=== PATIENT | female | born 1975 | race Caucasian/White ===

== ENCOUNTER 2020-04-23 16:48 | Observation (INO) ==
[2020-04-23] MEDS ORDERED: ASPIRIN CHEW 324 MG PO STA (17:01)
--- NOTE | 2020-04-23 17:13 | Emergency Department Note ---
Impression & Plan Chest pain, Abnormal EKG ED Provider Note NAME: YUMIKO MARTINEZ AGE: 44 SEX: F : 1975 ARRIVES VIA: Walk-In INFORMANT: Patient, ED PROVIDER(S): Jack Holloway DO CHIEF COMPLAINT: Chest pain HPI: The patient is a 44-year-old female who presented to the emergency department from [facility] for an evaluation of chest pain. The patient states that she has been having chest pain for approximately 3 weeks. The patient s tates that she notices the pain over her left upper chest. She denies having any nausea or vomiting. She has no cough. She states the pain is somewhat associated with shortness of breath but she does not seem to feel that this is the worst part of the discomfort. The patient states that she notices at rest as well as when she exerts herself. She has noticed that her heart is racing at times. She says the pain is into her left upper extremity and sometimes worsened with lifting her left arm. The patient is noticed no abdominal pain. She notices no back pain. She has no previous history of coronary artery disease. The patient was seen and sent to the emergency department because of a n abnormal EKG and was felt to be in need of a work-up for venous thromboembolic disease. The patient denies having any calf tenderness or leg pain. ROS: See above HPI for pertinent positives & negatives. A total of 10 systems reviewed and were otherwise negative. PAST MEDICAL HISTORY: See Below PAST SURGICAL HISTORY: See Below FAMILY HISTORY: See Below SOCIAL HISTORY: See Below HOME MEDICATIONS: See Below ALLERGIES: See Below VITALS: See Below PHYSICAL EXAMINATION: GENERAL: The patient is awake and alert. She is somewhat anxious appearing. EYES: The conjunctivae are clear. The pupils are round and reactive. EARS, NOSE, MOUTH AND THROAT: The nose is without any evidence of any deformity. Mucous membranes are moist. Tongue is midline. NECK: The neck is nontender and supple. RESPIRATORY: Normal respiratory effort is noted there is no evidence of wheezing rhonchi or rales CARDIOVASCULAR: Tachycardic rate with regular rhythm was noted. There is no definite murmur. GASTROINTESTINAL: The abdomen is soft. Abdomen is nontender. MUSCULOSKELETAL/EXTREMITIES: There is no evidence of gross deformity full range of motion is noted in the hips and shoulders. SKIN: There is no obvious evidence of any rash. There are no petechiae, pallor or cyanosis noted. NEUROLOGIC: Patient is awake alert and oriented x 3. MEDICAL DECISION MAKING: The patient is a 44-year-old female who presented to the emergency department for an evaluation of chest pain. The patient was having ongoing symptoms for approximately 3 weeks. She went to see her primary care physician today. She was experiencing tachycardia as well as elevated blood pressure. She was found to have signs of ST segment abnormality in inferior and lateral leads which were felt to be consistent with ischemia or possibly pulmonary embolism. She presented to the emergency department at the request of the primary care physician who saw her today. EKG was unchanged from earlier today. Troponin was negative. D-dimer was elevated. This prompted CT of the chest but was not positive for pulmonary embolism. I discussed the patient's laboratory and radiographic studies with her. She was treated with aspirin in the emergency department. Given her abnormal EKG I did discuss her case with the on-call [facility] hospitalist. They have agreed to evaluate the patient in the emergency department for further management and disposition. Triage Nursing notes reviewed. Prior medical records reviewed Vital Signs: reviewed and remarkable for tachycardia and elevated blood pressure. Differential diagnosis: Cardiac ischemia, aortic dissection, pulmonary embolism, pneumothorax, pneumonia, pericarditis, myocarditis, esophageal rupture, GERD, cholecystitis, pancreatitis, musculoskeletal, as well as other pathologies. ER treatment provided: See below Diagnostics interpreted by me: ECG: EKG was obtained in the emergency department. My interpretation is sinus tachycardia at 118 bpm. There was no ectopy. Lateral and inferior ST depres sions were noted. There is no previous tracing available for comparison. Cardiac Monitoring: An order was placed for continuous cardiac monitoring. The monitor shows a rate of 110 bpm with sinus tachycardia rhythm. Laboratory studies: As stated above and show below. Imaging studies: See below Consultation(s): I discussed this case with Dr. Morales who is on-call for the [facility] group. Past Med/Surg History Social History Smoking Status: Never smoker Hx Alcohol Use: Yes Alcohol type: wine Alcohol Intake Frequency: 2-4 x/Month Feels Safe at Home: Yes Allergies Allergies Allergy/AdvReac Type Severity Reaction Status Date / Time No Known Allergies Allergy Unverified 04/23/20 17:46 Home Meds Home Medications Medication Instructions Recorded Confirmed No Known Home Medications 04/23/20 04/23/20 Results & Data (ED) Vital Signs Vital Signs - 24 hr 04/23/20 16:51 04/23/20 17:01 04/23/20 17:06 Temperature 36.8 C Temperature Source Temporal Artery Scan Pulse Rate 122 H 125 H Pulse Rate [Bilateral Apical] Pulse Rate from SpO2 Sensor 126 H Respiratory Rate 20 13 Respiratory Effort / Characteristics Respiratory Depth Blood Pressure 172/109 H Blood Pressure [Left Arm] Blood Pressure Mean 130 Blood Pressure Mean [Left Arm] Pulse Oximetry 99 100 99 Oxygen Delivery Method Room Air Room Air Sepsis Recent Fever Within 48 Hours No Sepsis New/Unexplained Change in Mental Status N/A Sepsis Action Taken by Nursing No Action Required 04/23/20 17:10 04/23/20 17:20 04/23/20 17:30 Temperature Temperature Source Pulse Rate 123 H 116 H 115 H Pulse Rate [Bilateral Apical] Pulse Rate from SpO2 Sensor 126 H Respiratory Rate 21 13 19 Respiratory Effort / Characteristics Respiratory Depth Blood Pressure Blood Pressure [Left Arm] Blood Pressure Mean Blood Pressure Mean [Left Arm] Pulse Oximetry 97 Oxygen Delivery Method Sepsis Recent Fever Within 48 Hours Sepsis New/Unexplained Change in Mental Status Sepsis Action Taken by Nursing 04/23/20 17:31 04/23/20 17:40 04/23/20 17:50 Temperature Temperature Source Pulse Rate 121 H 116 H 114 H Pulse Rate [Bilateral Apical] Pulse Rate from SpO2 Sensor Respiratory Rate 25 H 17 17 Respiratory Effort / Characteristics Respiratory Depth Blood Pressure 128/95 Blood Pressure [Left Arm] Blood Pressure Mean 106 Blood Pressure Mean [Left Arm] Pulse Oximetry Oxygen Delivery Method Sepsis Recent Fever Within 48 Hours Sepsis New/Unexplained Change in Mental Status Sepsis Action Taken by Nursing 04/23/20 18:00 04/23/20 18:29 04/23/20 18:30 Temperature Temperature Source Pulse Rate 120 H 119 H 115 H Pulse Rate [Bilateral Apical] Pulse Rate from SpO2 Sensor 119 H 115 H Respiratory Rate 21 19 16 Respiratory Effort / Characteristics Respiratory Depth Blood Pressure Blood Pressure [Left Arm] Blood Pressure Mean Blood Pressure Mean [Left Arm] Pulse Oximetry 98 99 Oxygen Delivery Method Room Air Sepsis Recent Fever Within 48 Hours Sepsis New/Unexplained Change in Mental Status Sepsis Action Taken by Nursing 04/23/20 18:40 04/23/20 19:07 Temperature Temperature Source Pulse Rate 112 H Pulse Rate [Bilateral Apical] 108 H Pulse Rate from SpO2 Sensor 113 H Respiratory Rate 16 20 Respiratory Effort / Characteristics Non-Labored Respiratory Depth Normal Blood Pressure Blood Pressure [Left Arm] 153/106 H Blood Pressure Mean Blood Pressure Mean [Left Arm] 121 Pulse Oximetry 97 96 Oxygen Delivery Method Sepsis Recent Fever Within 48 Hours Sepsis New/Unexplained Change in Mental Status Sepsis Action Taken by Jail Medications Current Medication List: was personally reviewed by me Laboratory Data Attestation: I reviewed the patient's lab results. Result diagrams: 04/23/20 17:17 04/23/20 17:17 Lab Results 04/23/20 04/23/20 04/23/20 Range/Units 17:17 17:17 17:17 WBC 10.27 (4.8-10.8) K/uL RBC 4.30 (4.2-5.4) M/uL Hgb 13.8 (12.0-16.0) g/dL Hct 40.5 (37-47) % MCV 94.2 (80-100) fL MCH 32.1 (25-34) pg MCHC 34.1 (32-36) g/dL RDW Std Deviation 43.3 (36.4-46.3) fL RDW Coeff of Rachell 12.6 (11.5-14.5) % Plt Count 288 (130-400) K/uL MPV 10.4 (7.4-10.4) fL Immature Gran % (Auto) 0.2 % Neut % (Auto) 69.8 % Lymph % (Auto) 22.2 % [place] % (Auto) 7.0 % Eos % (Auto) 0.7 % Baso % (Auto) 0.1 % Neut # (Auto) 7.17 H (1.4-6.5) K/uL Lymph # (Auto) 2.28 (1.2-3.4) K/uL [place] # (Auto) 0.72 H (0.11-0.59) K/uL Eos # (Auto) 0.07 (0-0.5) K/uL Baso # (Auto) 0.01 (0-0.2) K/uL Immature Gran # (Auto) 0.02 (0.00-0.02) K/uL PT (9.0-12.0) Seconds INR (0.9-1.1) APTT (21.0-31.0) Seconds PTT Ratio D-Dimer (0-500) ug/L FEU Sodium 141 (136-145) mmol/L Potassium 3.8 (3.5-5.1) mmol/L Chloride 107 (98-107) mmol/L Carbon Dioxide 28 (21-32) mmol/L Anion Gap 6.0 (3-11) BUN 15 (7-18) mg/dl Creatinine 0.88 (0.6-1.2) mg/dl Est Cr Clr Drug Dosing 87.6 ml/min Est GFR ( Amer) 93.3 Est GFR (Non-Af Amer) 80.5 BUN/Creatinine Ratio 16.5 (10-20) Glucose 105 H (70-99) mg/dl Calcium 9.1 (8.5-10.1) mg/dl Magnesium 2.0 (1.8-2.4) mg/dl Total Bilirubin 0.4 (0.2-1) mg/dl AST 10 L (15-37) U/L ALT 19 (12-78) U/L Alkaline Phosphatase 79 (45-117) U/L Troponin I < 0.015 (0-0.045) ng/ml Total Protein 8.1 (6.4-8.2) gm/dl Albumin 4.1 (3.4-5.0) gm/dl Globulin 4.0 (2.5-4.0) gm/dl Albumin/Globulin Ratio 1.0 (0.9-2) Lipase 147 (73-393) U/L TSH 0.632 (0.300-4.500) uIu/ml HCG, Qual Negative (Negative) COVID-19 Eval Order SARS-CoV-2, RNA, NAAT (NEGATIVE) 04/23/20 04/23/20 04/23/20 Range/Units 17:17 17:24 17:24 WBC (4.8-10.8) K/uL RBC (4.2-5.4) M/uL Hgb (12.0-16.0) g/dL Hct (37-47) % MCV (80-100) fL MCH (25-34) pg MCHC (32-36) g/dL RDW Std Deviation (36.4-46.3) fL RDW Coeff of Rachell (11.5-14.5) % Plt Count (130-400) K/uL MPV (7.4-10.4) fL Immature Gran % (Auto) % Neut % (Auto) % Lymph % (Auto) % [place] % (Auto) % Eos % (Auto) % Baso % (Auto) % Neut # (Auto) (1.4-6.5) K/uL Lymph # (Auto) (1.2-3.4) K/uL [place] # (Auto) (0.11-0.59) K/uL Eos # (Auto) (0-0.5) K/uL Baso # (Auto) (0-0.2) K/uL Immature Gran # (Auto) (0.00-0.02) K/uL PT 10.2 (9.0-12.0) Seconds INR 1.0 (0.9-1.1) APTT 25.0 (21.0-31.0) Seconds PTT Ratio 1.0 D-Dimer 720 H* (0-500) ug/L FEU Sodium (136-145) mmol/L Potassium (3.5-5.1) mmol/L Chloride (98-107) mmol/L Carbon Dioxide (21-32) mmol/L Anion Gap (3-11) BUN (7-18) mg/dl Creatinine (0.6-1.2) mg/dl Est Cr Clr Drug Dosing ml/min Est GFR ( Amer) Est GFR (Non-Af Amer) BUN/Creatinine Ratio (10-20) Glucose (70-99) mg/dl Calcium (8.5-10.1) mg/dl Magnesium (1.8-2.4) mg/dl Total Bilirubin (0.2-1) mg/dl AST (15-37) U/L ALT (12-78) U/L Alkaline Phosphatase (45-117) U/L Troponin I (0-0.045) ng/ml Total Protein (6.4-8.2) gm/dl Albumin (3.4-5.0) gm/dl Globulin (2.5-4.0) gm/dl Albumin/Globulin Ratio (0.9-2) Lipase (73-393) U/L TSH (0.300-4.500) uIu/ml HCG, Qual (Negative) COVID-19 Eval Order Covid19 IDNow [facility] SARS-CoV-2, RNA, NAAT NEGATIVE (NEGATIVE) Administered Medications Discontinued Medications Aspirin (Aspirin Chew 324 Mg) 324 mg PO NOW STA Stop: 04/23/20 17:02 Last Admin: 04/23/20 17:23 Dose: 324 mg Documented by: [id number] Sodium Chloride (Nss) 500 mls @ 999 mls/hr IV .Q31M GREG Stop: 04/23/20 17:45 Last Infusion: 04/23/20 18:03 Dose: 0 mls/hr Documented by: [id number] Admin: 04/23/20 17:23 Dose: 999 mls/hr Documented by: [id number] Ioversol (Ioversol 100ml) 117 ml IV ONCE ONE Stop: 04/23/20 18:16 Last Admin: 04/23/20 18:15 Dose: 117 ml Documented by: [id number] Imaging Data Radiologist's Impression: Patient: YUMIKO MARTINEZ Admit Date: 04/23/20 MR#: [id number] Address1: [address] [place] [address] Acct ID:[id number] Address2: Date: 1975 [facility] Zip: [place] [address] Age: 44 Location: ED Sex: F Room/Bed: Att Phy: Diagnosis: ABNORMAL EKG Yesica Phy: Maureen Cummings DO Service Date: 04/23/20 Fam Phy: Interpreting Phy: Alen Duque MD Admit Phy: Ordering Phy: Jack Holloway DO cc: ~ CT ANGIOGRAM OF THE CHEST CLINICAL HISTORY: Atypical chest pain. Left-sided chest pressure. COMPARISON STUDY: Chest x-ray dated 04/23/2020. TECHNIQUE: Following the IV administration of 117 cc of Optiray 320, CT angiogram of the chest was performed from the upper abdomen to the thoracic inlet utilizing the pulmonary embolus protocol. Images are reviewed in the axial, sagittal, and coronal planes. 3-D MIPS images are created and assessed. IV contrast was administered without complication. A dose lowering technique was utilized adhering to the principles of ALARA. CT DOSE: 353.68 mGy.cm FINDINGS: Thyroid: Imaged portions of the thyroid gland are normal in size and attenuation. Low-attenuation nodules measure up to 7 mm. Thoracic aorta: The thoracic aorta is normal in caliber and demonstrates standard 3-vessel arch anatomy. No dissection is seen. Pulmonary vasculature: The pulmonary trunk is normal in caliber. There are no filling defects identified in main, lobar, or segmental pulmonary branches to suggest pulmonary embolus. Heart: The heart is normal in size and without pericardial effusion. Lungs and pleural spaces: The lungs and pleural spaces are clear. The trachea and central airways are patent. Mediastinum: There is no mediastinal lymphadenopathy. [place]: Clear. Axillae: There is no axillary lymphadenopathy. Upper abdomen: Partially visualized upper abdominal viscera is within normal limits. Skeletal structures: No lytic or blastic bony lesions are seen. IMPRESSION: 1. There is no evidence of pulmonary embolus in the main, lobar, or segmental pulmonary arteries. 2. The lungs are clear. ACT 112: Negative or not required by law. Electronically signed by: Alen Duque M.D. 04/23/2020 6:38 PM Dictated: 04/23/201832 Transcribed: 04/23/201832 Patient: YUMIKO MARTINEZ Admit Date: 04/23/20 MR#: [id number] Address1: [address] [place] [address] Acct ID:[id number] Address2: Date: 1975 [facility] Zip: [place] [address] Age: 44 Location: ED Sex: F Room/Bed: Att Phy: Diagnosis: ABNORMAL EKG Yesica Phy: Maureen Cummings DO Service Date: 04/23/20 Fam Phy: Interpreting Phy: Alen Duque MD Admit Phy: Ordering Phy: Jack Holloway DO cc: ~ SINGLE VIEW CHEST CLINICAL HISTORY: Atypical chest pain. FINDINGS: An AP, portable, upright chest radiograph is obtained. No prior studies are available for comparison at the time of dictation. The cardiomediastinal silhouette is unremarkable. The lungs and pleural spaces are clear. No pneumothorax is seen. The bony thorax is grossly intact. IMPRESSION: No active disease in the chest. ACT 112: Negative or not required by law. Electronically signed by: Alen Duque M.D. 04/23/2020 5:47 PM Dictated: 04/23/201746 Transcribed: 04/23/207 Blood Pressure Blood Pressure Findings: Elevated blood pressure Blood Pressure Disposition: further management by hospitalist Discharge Plan Visit Data Chief Complaint: Abnormal Labs/Diagnostic Testing Stated Complaint: ABNORMAL EKG ED Provider: Jack Holloway Discharge Problem: Chest pain, Abnormal EKG Patient Disposition: Being Evaluated by Hospitalist Condition: Good Forms Stand Alone Forms: [employer] Prescriptions Prescriptions: No Action No Known Home Medications RF: 0 Referrals Referrals: Maureen Cummings DO [Primary Care Provider] - Discharge Problem: Chest pain Qualifiers: Chest pain type: unspecified Qualified Code(s): R07.9 - Chest pain, unspecified
[2020-04-23] MEDS ORDERED: SODIUM CHLORIDE 0.9% 500 ML IV SCH (17:15)
[2020-04-23 17:27] LABS: Basophils # (auto) 0.01 K/uL (0-0.2); Basophils % (auto) 0.1 %; Eosinophils # (auto) 0.07 K/uL (0-0.5); Eosinophils % (auto) 0.7 %; Hematocrit (blood only) 40.5 % (37-47); Hemoglobin 13.8 g/dL (12.0-16.0); Immature Granulocytes # (auto) 0.02 K/uL (0.00-0.02); Immature Granulocytes % (auto) 0.2 %; Lymphocytes # (auto) 2.28 K/uL (1.2-3.4); Lymphocytes % (auto) 22.2 %; Mean Corpuscular Hemoglobin 32.1 pg (25-34); Mean Corpuscular Hgb Conc 34.1 g/dL (32-36); Mean Corpuscular Volume 94.2 fL (80-100); Mean Platelet Volume 10.4 fL (7.4-10.4); Monocytes # (auto) 0.72 K/uL (0.11-0.59); Neutrophils # (auto) 7.17 K/uL (1.4-6.5); Neutrophils % (auto) 69.8 %; Platelet Count 288 K/uL (130-400); RDW Coefficient of Variation 12.6 % (11.5-14.5); RDW Standard Deviation 43.3 fL (36.4-46.3); White Blood Count 10.27 K/uL (4.8-10.8)
[2020-04-23 17:43] LABS: Alanine Aminotransferase 19 U/L (12-78); Albumin Level 4.1 gm/dl (3.4-5.0); Aspartate Aminotransferase 10 U/L (15-37); BUN Creatinine Ratio 16.5 (10-20); Blood Urea Nitrogen 15 mg/dl (7-18); Calcium 9.1 mg/dl (8.5-10.1); Carbon Dioxide 28 mmol/L (21-32); Chloride 107 mmol/L (98-107); Creatinine Clr Calc Pharmacy 87.6 ml/min; Est GFR (African American) 93.3; Est GFR (Non-African American) 80.5; Glucose 105 mg/dl (70-99); Lipase 147 U/L (73-393); Potassium 3.8 mmol/L (3.5-5.1); Sodium 141 mmol/L (136-145)
--- NOTE | 2020-04-23 17:49 | XRay Report ---
SINGLE VIEW CHEST CLINICAL HISTORY: Atypical chest pain. FINDINGS: An AP, portable, upright chest radiograph is obtained. No prior studies are available for c omparison at the time of dictation. The cardiomediastinal silhouette is unremarkable. The lungs and pleural spaces are clear. No pneumothorax is seen. The bony thorax is grossly intact. IMPRESSION: No active disease in the chest. ACT 112: Negative or not required by law. Electronically signed by: Alen Duque M.D. 04/23/2020 5:47 PM
[2020-04-23 17:54] LABS: Alkaline Phosphatase 79 U/L (45-117); Bilirubin,Total 0.4 mg/dl (0.2-1); D Dimer 720 ug/L FEU (0-500); Thyroid Stimulating Hormone 0.632 uIu/ml (0.300-4.500); Total Protein 8.1 gm/dl (6.4-8.2); Troponin I < 0.015 ng/ml (0-0.045)
[2020-04-23 17:55] LABS: Pregnancy Test, Serum Negative (Negative)
[2020-04-23 18:05] LABS: Prothrombin Time 10.2 Seconds (9.0-12.0)
[2020-04-23] MEDS ORDERED: IOVERSOL 100ml IV ONE (18:15)
--- NOTE | 2020-04-23 18:39 | CT Scan Report ---
CT ANGIOGRAM OF THE CHEST CLINICAL HISTORY: Atypical chest pain. Left-sided chest pressure. COMPARISON STUDY: Chest x-ray dated 04/23/2020. TECHNIQUE: Following the IV administration of 117 cc of Optiray 320, CT angiogram of the chest was pe rformed from the upper abdomen to the thoracic inlet utilizing the pulmonary embolus protocol. Images are reviewed in the axial, sagittal, and coronal planes. 3-D MIPS images are created and assessed. I V contrast was administered without complication. A dose lowering technique was utilized adhering to the principles of ALARA. CT DOSE: 353.68 mGy.cm FINDINGS: Thyroid: Imaged portions of the thyroid gland are normal in size and attenuation. Low-attenuation nod ules measure up to 7 mm. Thoracic aorta: The thoracic aorta is normal in caliber and demonstrates standard 3-vessel arch anato my. No dissection is seen. Pulmonary vasculature: The pulmonary trunk is normal in caliber. There are no filling defects identif ied in main, lobar, or segmental pulmonary branches to suggest pulmonary embolus. Heart: The heart is normal in size and without pericardial effusion. Lungs and pleural spaces: The lungs and pleural spaces are clear. The trachea and central airways are patent. Mediastinum: There is no mediastinal lymphadenopathy. Mar[place]: Clear. Axillae: There is no axillary lymphadenopathy. Upper abdomen: Partially visualized upper abdominal viscera is within normal limits. Skeletal structures: No lytic or blastic bony lesions are seen. IMPRESSION: 1. There is no evidence of pulmonary embolus in the main, lobar, or segmental pulmonary arteries. 2. The lungs are clear. ACT 112: Negative or not required by law. Electronically signed by: Alen Duque M.D. 04/23/2020 6:38 PM
[2020-04-23] MEDS ORDERED: POTASSIUM CHLORIDE CRTAB 20 MEQ TABCR PO STA (19:40)
[2020-04-23 20:36] LABS: C Reactive Protein 0.43 mg/dl (0-0.29); Troponin I < 0.015 ng/ml (0-0.045)
[2020-04-23] MEDS ORDERED: NITROGLYCERIN SL 0.4 MG/TAB TAB SL STA (20:47)
--- NOTE | 2020-04-23 20:50 | History & Physical Report ---
Date of Service April 23, 2020 Assessment & Plan (1) Chest pain: Atypical No relief with nitroglycerin. Anxiety contributory OBS PCU Analgesia Anxiolytic as needed Follow troponin TTE, Cardiology consult RE chest pain DVT prophylaxis. Lovenox subcu Full code Text document was generated using [employer] voice recognition software. It may contain grammatical or spelling errors. Kindly contact undersigned for clarification of any documentation item in question. History of Present Illness Chief Complaint: Chest pressure Primary Care Provider: Maureen Cummings DO History obtained from patient and records. Medical history significant for 3 weeks ago patient noted intermittent left sided chest pressure symptoms with episodic palpitations possibly related to exercise and left arm motion. No cough, no S OB symptoms. Usual stress at work. Patient seen at the weekend clinic today. SBP 140s, pulse rate 120s. EKG at the office showed tachycardia with inverted T waves in the anterolateral leads. Patient sent to the ER for evaluation. Aspirin given at the ER. Chest pressure not relieved by nitroglycerin administration at the ER. Medical History as above Surgical History : Dental surgery Family History : Stroke Personal/Social history : Non-smoker, occasional EtOH intake, company career placement services counselor Allergies Allergy/AdvReac Type Severity Reaction Status Date / Time No Known Allergies Allergy Unverified 04/23/20 17:46 Home Medications Medication Instructions Recorded Confirmed Type No Known Home Medications 04/23/20 04/23/20 History Past Med/Surg History Social History Smoking Status: Never smoker Second Hand Exposure: No; Do You Dip or Chew Tobacco: No; Tobacco Cessation Education Requested by Patient: No Hx Alcohol Use: Yes Alcohol type: wine Alcohol Intake Frequency: 2-4 x/Month Hx Substance Use: No Preferred Language: Khmer Communication Ability: Effective Fire Chief Required: No Beliefs That Will Affect Care: None Current Living Situation: Family Other Information That Helps Us Care for You: No Feels Safe at Home: Yes Safety Concerns: Feels Safe At This Time Assistive Devices: None Review of Systems Review of Systems: As per HPI, all 10 systems reviewed, all other ROS negative Physical Exam Physical Exam: GENERAL: Comfortable, anxious, no respiratory distress, occasionally hyperventilating SKIN: Normal color, warm HEENT: [place] palpebral conjunctivae, no ptosis, moist buccal mucosa NECK : Supple, no tenderness CHEST : CTA, no tenderness HEART : Tachycardic, no obvious murmurs ABDOMEN: Some distention, nontender EXTREMITIES : No LE swelling/tenderness, no other conspicuous deformities noted NEUROLOGIC : Coherent, no facial asymmetry, no other gross focality Results & Data Results & Data ([facility]) Vital Signs (Past 12 Hours) Vital Signs Temp Pulse Pulse Resp BP BP Pulse Ox 04/23/20 20:05 98 H 20 139/92 97 04/23/20 19:07 108 H 20 153/106 H 96 04/23/20 18:40 112 H 16 97 04/23/20 18:30 115 H 16 99 04/23/20 18:29 119 H 19 98 04/23/20 18:00 120 H 21 04/23/20 17:50 114 H 17 04/23/20 17:40 116 H 17 04/23/20 17:31 121 H 25 H 128/95 04/23/20 17:30 115 H 19 04/23/20 17:20 116 H 13 04/23/20 17:10 123 H 21 97 04/23/20 17:06 99 04/23/20 17:01 125 H 13 100 04/23/20 16:51 36.8 C 122 H 20 172/109 H 99 Laboratory Results Laboratory Results WBC 10.27 K/uL (4.8-10.8) 04/23/20 17:17 RBC 4.30 M/uL (4.2-5.4) 04/23/20 17:17 Hgb 13.8 g/dL (12.0-16.0) 04/23/20 17:17 Hct 40.5 % (37-47) 04/23/20 17:17 MCV 94.2 fL (80-100) 04/23/20 17:17 MCH 32.1 pg (25-34) 04/23/20 17:17 MCHC 34.1 g/dL (32-36) 04/23/20 17:17 RDW Std Deviation 43.3 fL (36.4-46.3) 04/23/20 17:17 RDW Coeff of Rachell 12.6 % (11.5-14.5) 04/23/20 17:17 Plt Count 288 K/uL (130-400) 04/23/20 17:17 MPV 10.4 fL (7.4-10.4) 04/23/20 17:17 Immature Gran % (Auto) 0.2 % 04/23/20 17:17 Neut % (Auto) 69.8 % 04/23/20 17:17 Lymph % (Auto) 22.2 % 04/23/20 17:17 [place] % (Auto) 7.0 % 04/23/20 17:17 Eos % (Auto) 0.7 % 04/23/20 17:17 Baso % (Auto) 0.1 % 04/23/20 17:17 Neut # (Auto) 7.17 K/uL (1.4-6.5) H 04/23/20 17:17 Lymph # (Auto) 2.28 K/uL (1.2-3.4) 04/23/20 17:17 [place] # (Auto) 0.72 K/uL (0.11-0.59) H 04/23/20 17:17 Eos # (Auto) 0.07 K/uL (0-0.5) 04/23/20 17:17 Baso # (Auto) 0.01 K/uL (0-0.2) 04/23/20 17:17 Immature Gran # (Auto) 0.02 K/uL (0.00-0.02) 04/23/20 17:17 ESR 9 mm/hr (0-21) 04/23/20 17:17 PT 10.2 Seconds (9.0-12.0) 04/23/20 17:17 INR 1.0 (0.9-1.1) 04/23/20 17:17 APTT 25.0 Seconds (21.0-31.0) 04/23/20 17:17 PTT Ratio 1.0 04/23/20 17:17 D-Dimer 720 ug/L FEU (0-500) H* 04/23/20 17:17 Sodium 141 mmol/L (136-145) 04/23/20 17:17 Potassium 3.8 mmol/L (3.5-5.1) 04/23/20 17:17 Chloride 107 mmol/L (98-107) 04/23/20 17:17 Carbon Dioxide 28 mmol/L (21-32) 04/23/20 17:17 Anion Gap 6.0 (3-11) 04/23/20 17:17 BUN 15 mg/dl (7-18) 04/23/20 17:17 Creatinine 0.88 mg/dl (0.6-1.2) 04/23/20 17:17 Est Cr Clr Drug Dosing 87.6 ml/min 04/23/20 17:17 Est GFR ( Amer) 93.3 04/23/20 17:17 Est GFR (Non-Af Amer) 80.5 04/23/20 17:17 BUN/Creatinine Ratio 16.5 (10-20) 04/23/20 17:17 Glucose 105 mg/dl (70-99) H 04/23/20 17:17 Calcium 9.1 mg/dl (8.5-10.1) 04/23/20 17:17 Magnesium 2.0 mg/dl (1.8-2.4) 04/23/20 17:17 Total Bilirubin 0.4 mg/dl (0.2-1) 04/23/20 17:17 AST 10 U/L (15-37) L 04/23/20 17:17 ALT 19 U/L (12-78) 04/23/20 17:17 Alkaline Phosphatase 79 U/L (45-117) 04/23/20 17:17 Troponin I < 0.015 ng/ml (0-0.045) 04/23/20 20:06 C-Reactive Protein 0.43 mg/dl (0-0.29) H 04/23/20 20:06 Total Protein 8.1 gm/dl (6.4-8.2) 04/23/20 17:17 Albumin 4.1 gm/dl (3.4-5.0) 04/23/20 17:17 Globulin 4.0 gm/dl (2.5-4.0) 04/23/20 17:17 Albumin/Globulin Ratio 1.0 (0.9-2) 04/23/20 17:17 Lipase 147 U/L (73-393) 04/23/20 17:17 TSH 0.632 uIu/ml (0.300-4.500) 04/23/20 17:17 HCG, Qual Negative (Negative) 04/23/20 17:17 COVID-19 Eval Order Covid19 [facility] 04/23/20 17:24 SARS-CoV-2, RNA, NAAT NEGATIVE (NEGATIVE) 04/23/20 17:[address] chest: 1. There is no evidence of pulmonary embolus in the main, lobar, or segmental pulmonary arteries. 2. The lungs are clear. EKG as per my interpretation : Rate 120, sinus tachycardia, normal axis, T wave abnormalities inferior leads, ST depression inferior and anterior leads (1) Chest pain Chest pain type: unspecified Qualified Code(s): R07.9 - Chest pain, unspecified
[2020-04-23] MEDS: NITROGLYCERIN SL 0.4 MG/TAB TAB SL PRN ×2 (20:54→20:55)
[2020-04-23 21:28] LABS: Lyme Ab IgG w/WB Rflx Negative (Negative); Lyme Ab IgM w/WB Rflx Negative (Negative)
[2020-04-23] MEDS ORDERED: LORazepam 0.25 MG/0.5 ML VIAL IV PRN (21:57)
[2020-04-23] MEDS ORDERED: PROMETHAZINE HCL 12.5 MG in SODIUM CHLORIDE 0.9% 50 ML IV PRN (21:57)
[2020-04-23] MEDS ORDERED: ACETAMINOPHEN 325 MG TAB PO PRN (21:57)
[2020-04-23] MEDS ORDERED: traMADol HCL 50 MG TABLET PO PRN (21:57)
[2020-04-23] MEDS ORDERED: MoRPHine SULFATE 2 MG/ML CARP IV PRN (21:57)
[2020-04-23] MEDS ORDERED: traMADol HCL 50 MG TABLET PO STA (22:00)
[2020-04-23] MEDS ORDERED: NSS + 20MEQ KCL 20 MEQ/1,000 ML BAG IV ONE (22:30)
[2020-04-24 06:16] LABS: Basophils # (auto) 0.01 K/uL (0-0.2); Basophils % (auto) 0.1 %; Eosinophils # (auto) 0.09 K/uL (0-0.5); Eosinophils % (auto) 1.2 %; Hematocrit (blood only) 37.1 % (37-47); Hemoglobin 12.5 g/dL (12.0-16.0); Immature Granulocytes # (auto) 0.02 K/uL (0.00-0.02); Immature Granulocytes % (auto) 0.3 %; Lymphocytes # (auto) 2.22 K/uL (1.2-3.4); Lymphocytes % (auto) 28.9 %; Mean Corpuscular Hemoglobin 31.6 pg (25-34); Mean Corpuscular Hgb Conc 33.7 g/dL (32-36); Mean Corpuscular Volume 93.9 fL (80-100); Mean Platelet Volume 10.4 fL (7.4-10.4); Monocytes # (auto) 0.53 K/uL (0.11-0.59); Monocytes % (auto) 6.9 %; Neutrophils # (auto) 4.81 K/uL (1.4-6.5); Neutrophils % (auto) 62.6 %; Platelet Count 224 K/uL (130-400); RDW Coefficient of Variation 12.7 % (11.5-14.5); RDW Standard Deviation 43.9 fL (36.4-46.3); Red Blood Count 3.95 M/uL (4.2-5.4); White Blood Count 7.68 K/uL (4.8-10.8)
[2020-04-24 06:49] LABS: BUN Creatinine Ratio 16.3 (10-20); Blood Urea Nitrogen 12 mg/dl (7-18); Carbon Dioxide 25 mmol/L (21-32); Chloride 111 mmol/L (98-107); Cholesterol 176 mg/dl (0-200); Creatinine Clr Calc Pharmacy 99.7 ml/min; Est GFR (African American) 111.4; Est GFR (Non-African American) 96.1; Glucose 94 mg/dl (70-99); Potassium 3.9 mmol/L (3.5-5.1); Sodium 143 mmol/L (136-145)
[2020-04-24 06:54] LABS: Chol HDL Ratio 3; HDL Cholesterol 64 mg/dl; LDL Cholesterol Calculated 88 mg/dl; Triglycerides 122 mg/dl (0-150); Troponin I < 0.015 ng/ml (0-0.045); VLDL Cholesterol 24 mg/dl
[2020-04-24] MEDS: ENOXAPARIN INJ 40 MG/0.4 ML SYR SQ SCH (08:44)
[2020-04-24] MEDS ORDERED: INFLUENZA VIRUS QUAD VACCINE 0.5 ML SYR IM ONE (09:00)
[2020-04-24] MEDS ORDERED: INFLUENZA ADMINISTRATION CHARGE ONE (09:00)
--- NOTE | 2020-04-24 13:06 | Cardiology Consultation ---
Date of Consultation April 24, 2020 Assessment & Plan (1) Chest pain: (2) Abnormal EKG: It was my pleasure to see Mrs. Bright in consultation today. Her chest discomfort is atypical for ischemia but given the abnormal EKG she did undergo exercise stress echocardiogram. Stress imaging was normal at 12.[address] segment depressions were worsened with exercise. No change in chest discomfort at peak exercise. Resting echocardiogram does show a small amount of increased pericardial fluid with possible increased brightness of the pericardium as well. Given the above symptoms and findings I am suspicious that she is suffering from pericarditis. Lyme titers have been sent. We will initiate treatment with ibuprofen 600 mg p.o. every 6 hours along with colchicine 0.6 mg twice daily. I would like to continue to watch her on telemetry overnight to monitor her symptoms and if there is no response to treatment further ischemic evaluation may be warranted. My hope is that her symptoms will improve with treatment and that a coronary CTA could be performed as an outpatient given the equivocal stress test findings. History of Present Illness Reason for Consultation: Chest pain Requesting Physician: Dr. Morales Attending Physician: Silverio Shafer MD History of Present Illness It was my pleasure to see Mrs. Bright in cardiac consultation today. She is a very pleasant and healthy 44-year-old woman who presented to [facility] at the advice of her PCP for evaluation of chest pain. She states that for the last 3 weeks she has had this ongoing nagging chest discomfort. She describes it as a pressure sensation across her left precordium. She states that the pain is relatively constant and is not changed with movement or deep palpation of the site. She denies any associated symptoms with the chest discomfort. A few days ago she did attempt to exercise on her elliptical machine and while the chest discomfort did not change in intensity she did notice radiation down to her left arm at that time with a rapid increase of her pulse. She was seen in the PCPs office for evaluation of this and EKG was performed which was significantly abnormal. No previous studies available for comparison and she was transferred to [facility] emergency department. Overnight, there is been no change of her chest discomfort and otherwise feels well. [place] ticks. She does not remember any tick bites of her own recently but she has pulled ticks off her pets and family members. She denies any arthralgias or fevers. Allergies Allergy/AdvReac Type Severity Reaction Status Date / Time No Known Allergies Allergy Unverified 04/23/20 17:46 Home Medications Medication Instructions Recorded Confirmed Type No Known Home Medications 04/23/20 04/23/20 History Patient History Social History Smoking Status: Never smoker Second Hand Exposure: No; Do You Dip or Chew Tobacco: No; Tobacco Cessation Education Requested by Patient: No Hx Alcohol Use: Yes Alcohol type: wine Alcohol Intake Frequency: 2-4 x/Month Hx Substance Use: No Preferred Language: [place] Communication Ability: Effective Campaign Coordinator Required: No Beliefs That Will Affect Care: None Current Living Situation: Family Other Information That Helps Us Care for You: No Feels Safe at Home: Yes Safety Concerns: Feels Safe At This Time Assistive Devices: None Review of Systems Review of Systems: All systems reviewed & are unremarkable except as noted in HPI & below Physical Exam Physical Exam: Physical Exam: General: Awake, alert and oriented x 3. No acute distress. HEENT: Normocephalic, atraumatic. Pupils equal, round and reactive to light and accommodation. Extraocular muscles are intact. Anicteric sclera. Moist mucous membranes. Neck: No JVD. No bruit. Cardiovascular: Regular. No S-4. Normal S-1 and S-2. No S-3. No murmurs, rubs or gallops. Pulmonary: Clear to auscultation bilaterally. No rales, rhonchi, or wheezing. Abdomen: Bowel sounds x 4, soft. No rebound, guarding or tenderness. No organomegaly. Extremities: No clubbing, cyanosis or edema. +2 pedal pulses bilaterally. Skin: Warm and dry. Results & Data ([facility]) Vital Signs (Past 12 Hours) Vital Signs Temp Pulse Pulse Resp BP Pulse Ox 04/24/20 11:12 36.6 C 99 H 18 137/88 98 04/24/20 07:12 36.7 C 106 H 18 139/97 98 04/24/20 07:00 89 04/24/20 04:01 36.6 C 95 H 18 122/80 95 Laboratory Results Laboratory Results - last 24 hr 04/23/20 04/23/20 04/23/20 17:17 17:17 17:17 WBC 10.27 RBC 4.30 Hgb 13.8 Hct 40.5 MCV 94.2 MCH 32.1 MCHC 34.1 RDW Std Deviation 43.3 RDW Coeff of Rachell 12.6 Plt Count 288 MPV 10.4 Immature Gran % (Auto) 0.2 Neut % (Auto) 69.8 Lymph % (Auto) 22.2 [place] % (Auto) 7.0 Eos % (Auto) 0.7 Baso % (Auto) 0.1 Neut # (Auto) 7.17 H Lymph # (Auto) 2.28 [place] # (Auto) 0.72 H Eos # (Auto) 0.07 Baso # (Auto) 0.01 Immature Gran # (Auto) 0.02 ESR PT INR APTT PTT Ratio D-Dimer Sodium 141 Potassium 3.8 Chloride 107 Carbon Dioxide 28 Anion Gap 6.0 BUN 15 Creatinine 0.88 Est Cr Clr Drug Dosing 87.6 Est GFR ( Amer) 93.3 Est GFR (Non-Af Amer) 80.5 BUN/Creatinine Ratio 16.5 Glucose 105 H Calcium 9.1 Magnesium 2.0 Total Bilirubin 0.4 AST 10 L ALT 19 Alkaline Phosphatase 79 Troponin I < 0.015 C-Reactive Protein Total Protein 8.1 Albumin 4.1 Globulin 4.0 Albumin/Globulin Ratio 1.0 Triglycerides Cholesterol LDL Cholesterol, Calc VLDL Cholesterol, Calc HDL Cholesterol Cholesterol/HDL Ratio Lipase 147 TSH 0.632 HCG, Qual Negative Lyme Disease IgG Ab Lyme Disease IgM Ab COVID-19 Eval Order SARS-CoV-2, RNA, NAAT 04/23/20 04/23/20 04/23/20 17:17 17:17 17:17 WBC RBC Hgb Hct MCV MCH MCHC RDW Std Deviation RDW Coeff of Rachell Plt Count MPV Immature Gran % (Auto) Neut % (Auto) Lymph % (Auto) [place] % (Auto) Eos % (Auto) Baso % (Auto) Neut # (Auto) Lymph # (Auto) [place] # (Auto) Eos # (Auto) Baso # (Auto) Immature Gran # (Auto) ESR 9 PT 10.2 INR 1.0 APTT 25.0 PTT Ratio 1.0 D-Dimer 720 H* Sodium Potassium Chloride Carbon Dioxide Anion Gap BUN Creatinine Est Cr Clr Drug Dosing Est GFR ( Amer) Est GFR (Non-Af Amer) BUN/Creatinine Ratio Glucose Calcium Magnesium Total Bilirubin AST ALT Alkaline Phosphatase Troponin I C-Reactive Protein Total Protein Albumin Globulin Albumin/Globulin Ratio Triglycerides Cholesterol LDL Cholesterol, Calc VLDL Cholesterol, Calc HDL Cholesterol Cholesterol/HDL Ratio Lipase TSH HCG, Qual Lyme Disease IgG Ab Negative Lyme Disease IgM Ab Negative COVID-19 Eval Order SARS-CoV-2, RNA, NAAT 04/23/20 04/23/20 04/23/20 17:24 17:24 20:06 WBC RBC Hgb Hct MCV MCH MCHC RDW Std Deviation RDW Coeff of Rachell Plt Count MPV Immature Gran % (Auto) Neut % (Auto) Lymph % (Auto) [place] % (Auto) Eos % (Auto) Baso % (Auto) Neut # (Auto) Lymph # (Auto) [place] # (Auto) Eos # (Auto) Baso # (Auto) Immature Gran # (Auto) ESR PT INR APTT PTT Ratio D-Dimer Sodium Potassium Chloride Carbon Dioxide Anion Gap BUN Creatinine Est Cr Clr Drug Dosing Est GFR ( Amer) Est GFR (Non-Af Amer) BUN/Creatinine Ratio Glucose Calcium Magnesium Total Bilirubin AST ALT Alkaline Phosphatase Troponin I < 0.015 C-Reactive Protein 0.43 H Total Protein Albumin Globulin Albumin/Globulin Ratio Triglycerides Cholesterol LDL Cholesterol, Calc VLDL Cholesterol, Calc HDL Cholesterol Cholesterol/HDL Ratio Lipase TSH HCG, Qual Lyme Disease IgG Ab Lyme Disease IgM Ab COVID-19 Eval Order Covid19 [facility] SARS-CoV-2, RNA, NAAT NEGATIVE 04/24/20 04/24/20 05:43 05:43 WBC 7.68 RBC 3.95 L Hgb 12.5 Hct 37.1 MCV 93.9 MCH 31.6 MCHC 33.7 RDW Std Deviation 43.9 RDW Coeff of Rachell 12.7 Plt Count 224 MPV 10.4 Immature Gran % (Auto) 0.3 Neut % (Auto) 62.6 Lymph % (Auto) 28.9 [place] % (Auto) 6.9 Eos % (Auto) 1.2 Baso % (Auto) 0.1 Neut # (Auto) 4.81 Lymph # (Auto) 2.22 [place] # (Auto) 0.53 Eos # (Auto) 0.09 Baso # (Auto) 0.01 Immature Gran # (Auto) 0.02 ESR PT INR APTT PTT Ratio D-Dimer Sodium 143 Potassium 3.9 Chloride 111 H Carbon Dioxide 25 Anion Gap 7.0 BUN 12 Creatinine 0.76 Est Cr Clr Drug Dosing 99.7 Est GFR ( Amer) 111.4 Est GFR (Non-Af Amer) 96.1 BUN/Creatinine Ratio 16.3 Glucose 94 Calcium 9.0 Magnesium Total Bilirubin AST ALT Alkaline Phosphatase Troponin I < 0.015 C-Reactive Protein Total Protein Albumin Globulin Albumin/Globulin Ratio Triglycerides 122 Cholesterol 176 LDL Cholesterol, Calc 88 VLDL Cholesterol, Calc 24 HDL Cholesterol 64 Cholesterol/HDL Ratio 3 Lipase TSH HCG, Qual Lyme Disease IgG Ab Lyme Disease IgM Ab COVID-19 Eval Order SARS-CoV-2, RNA, NAAT Medications Administered Current Inpatient Medications Acetaminophen (Acetaminophen 325 Mg Tab) 650 mg PO Q4H PRN PRN Reason: Pain or Fever Stop: 05/23/20 21:56 Colchicine (Colchicine 0.6 Mg Tab) 0.6 mg PO BID GREG Stop: 05/24/20 12:59 Enoxaparin Sodium (Enoxaparin Inj 40 Mg/0.4 Ml Syr) 40 mg SQ QAM GREG Stop: 05/24/20 08:59 Last Admin: 04/24/20 08:44 Dose: 40 mg Documented by: Lorazepam (Ativan) 0.25 mg in 0.5 mls @ 0.5 mls/min IV Q4H PRN PRN Reason: Anxiety Stop: 05/23/20 21:56 Potassium Chloride/Sodium Chloride (Normal Saline W/20 Meq Kcl) 20 meq in 1,000 mls @ 60 mls/hr IV .[id number] ONE Stop: 04/24/20 15:09 Last Infusion: 04/24/20 11:00 Dose: 0 mls/hr Documented by: Promethazine HCl 12.5 mg/ (Sodium Chloride) 50.5 mls @ 202 mls/hr IV Q6H PRN PRN Reason: Nausea And Vomiting Stop: 05/23/20 21:56 Ibuprofen (Ibuprofen 600 Mg Tab) 600 mg PO Q8 GREG Stop: 05/24/20 13:29 Morphine Sulfate (Morphine Sulfate 2 Mg/Ml Carp) 2 mg IV Q3H PRN PRN Reason: Pain Stop: 05/07/20 21:56 Tramadol HCl (Tramadol Hcl 50 Mg Tablet) 25 - 50 mg PO Q4H PRN PRN Reason: Pain Stop: 05/23/20 21:56 (1) Chest pain Chest pain type: unspecified Qualified Code(s): R07.9 - Chest pain, unspecified
--- NOTE | 2020-04-24 13:51 | Hospitalist Progress Note ---
Date of Service April 24, 2020 Assessment & Plan (1) Chest pain: Chest Pain: R/O ACS DD: Pericarditis Abnormal EKG Negative Troponin CXR: Unremarkable -ECHO: Normal LV chamber size and function. EF 65 to 70%. No segmental left ventricular wall motion abnormalities. Normal diastolic function. No significant valvular pathology. Slight increase in pericardial fluid adjacent to the apical anterior lateral space. Increased brightness of the inferior aspect of the pericardium. - Stress ECHO: Nonischemic exercise stress echocardiogram with normal wall motion on imaging. Abnormal EKG response to exercise with significant diffuse downsloping ST segment depressions. Equivocal study. No arrhythmias. Normal heart rate and blood pressure response to exercise. -Lipid Panel: WNL -Appreciate Cardiology Input -Started on colchicine, ibuprofen -Monitor on Tele DVT Px: Lovenox SQ Code Status Full code Disposition Expect to discharge home when medically stable Admission and Anticipated Discharge Date Admission Date: April 23, 2020 Subjective Patient is seen and examined at bedside States having left chest pressure-like sensation Denies dyspnea, dizziness, nausea, vomiting, abdominal pain Had stress test earlier today Offers no other complaints Review of Systems Review of Systems: All systems reviewed & are unremarkable except as noted in HPI & below Physical Exam Physical Exam: Physical Exam: Vitals signs as noted above General Appearance:Moderately built and nourished, no apparent distress Head: normocephalic, Atraumatic Eyes: normal inspection, EOMI Neck: supple, Trachea midline Respiratory/Chest: Normal breath sounds, CTA, No accessory muscle use Cardiovascular: S1, S2, No murmur Abdomen/GI:Soft, Non tender, Bowel sounds present Extremities/Musculoskeletal:normal inspection, no edema Neurologic/Psych:AAOX3, grossly no focal neurological deficits Skin: normal color, warm Results & Data Results & Data ([facility]) Vital Signs (Past 12 Hours) Vital Signs Temp Pulse Pulse Resp BP Pulse Ox 04/24/20 11:12 36.6 C 99 H 18 137/88 98 04/24/20 07:12 36.7 C 106 H 18 139/97 98 04/24/20 07:00 89 04/24/20 04:01 36.6 C 95 H 18 122/80 95 Laboratory Results Short CBC 04/23/20 04/24/20 Range/Units 17:17 05:43 WBC 10.27 7.68 (4.8-10.8) K/uL Hgb 13.8 12.5 (12.0-16.0) g/dL Hct 40.5 37.1 (37-47) % Plt Count 288 224 (130-400) K/uL BMP 04/23/20 04/24/20 17:17 05:43 Sodium 141 143 Potassium 3.8 3.9 Chloride 107 111 H Carbon Dioxide 28 25 BUN 15 12 Creatinine 0.88 0.76 Glucose 105 H 94 Calcium 9.1 9.0 Cardiac Enzymes 04/23/20 04/23/20 04/24/20 Range/Units 17:17 20:06 05:43 Troponin I < 0.015 < 0.015 < 0.015 (0-0.045) ng/ml Liver Function 04/23/20 Range/Units 17:17 Total Bilirubin 0.4 (0.2-1) mg/dl AST 10 L (15-37) U/L ALT 19 (12-78) U/L Alkaline Phosphatase 79 (45-117) U/L Albumin 4.1 (3.4-5.0) gm/dl (1) Chest pain Chest pain type: unspecified Qualified Code(s): R07.9 - Chest pain, unspecified
[2020-04-24] MEDS: IBUPROFEN 600 MG TAB PO SCH ×2 (14:20→21:29)
[2020-04-24] MEDS: COLCHICINE 0.6 MG TAB PO SCH ×2 (14:20→21:29)
--- NOTE | 2020-04-25 05:14 | Electrocardiogram Report ---
Test Reason : Blood Pressure : / mmHG Vent. Rate : 118 BPM Atrial Rate : 118 BPM P-R Int : 122 ms QRS Dur : 088 ms QT Int : 312 ms P-R-T Axes : 057 052 -58 degrees QTc Int : 437 ms Poor data quality, interpretation may be adversely affected Sinus tachycardia Abnormal ECG No previous ECGs available Confirmed by Stiven Salmeron ([id number]) on 04/25/2020 5:14:02 AM Referred By: Maureen Cummings Confirmed By:Stiven Salmeron
--- NOTE | 2020-04-25 05:36 | Electrocardiogram Report ---
Test Reason : Blood Pressure : / mmHG Vent. Rate : 093 BPM Atrial Rate : 093 BPM P-R Int : 134 ms QRS Dur : 082 ms QT Int : 358 ms P-R-T Axes : 052 064 035 degrees QTc Int : 445 ms Normal sinus rhythm Nonspecific ST abnormality Abnormal ECG When compared with ECG of 23-APR-2020 16:56, No significant change was found Confirmed by Stiven Salmeron ([id number]) on 04/25/2020 5:35:36 AM Referred By: Maureen Cummings Confirmed By:Stiven Salmeron
[2020-04-25] MEDS: IBUPROFEN 600 MG TAB PO SCH ×2 (05:37→13:28)
[2020-04-25] MEDS: ENOXAPARIN INJ 40 MG/0.4 ML SYR SQ SCH (09:16)
[2020-04-25] MEDS: COLCHICINE 0.6 MG TAB PO SCH (09:16)
[2020-04-25] MEDS ORDERED: METOPROLOL TARTRATE 25 MG TAB PO SCH (10:00)
--- NOTE | 2020-04-25 11:03 | Hospitalist Progress Note ---
Date of Service April 25, 2020 Assessment & Plan (1) Chest pain: Chest Pain: R/O ACS DD: Pericarditis Abnormal EKG Negative Troponin CXR: Unremarkable -ECHO: Normal LV chamber size and function. EF 65 to 70%. No segmental left ventricular wall motion abnormalities. Normal diastolic function. No significant valvular pathology. Slight increase in pericardial fluid adjacent to the apical anterior lateral space. Increased brightness of the inferior aspect of the pericardium. - Stress ECHO: Nonischemic exercise stress echocardiogram with normal wall motion on imaging. Abnormal EKG response to exercise with significant diffuse downsloping ST segment depressions. Equivocal study. No arrhythmias. Normal heart rate and blood pressure response to exercise. -Lipid Panel: WNL -Appreciate Cardiology Input -Continue colchicine, ibuprofen -Monitor on Tele -Needs follow up with Cardiology upon discharge DVT Px: Lovenox SQ Code Status Full code Disposition Expect to discharge home when medically stable Admission and Anticipated Discharge Date Admission Date: April 23, 2020 Subjective Patient is seen and examined at bedside left chest pressure is improved Admits that chest discomfort improves on sitting and worsens with lying down Denies dyspnea, dizziness, nausea, vomiting, abdominal pain No new complaints Review of Systems Review of Systems: As per HPI, all 10 systems reviewed, all other ROS negative Physical Exam Physical Exam: Physical Exam: Vitals signs as noted above General Appearance:Moderately built and nourished, no apparent distress Head: normocephalic, Atraumatic Eyes: normal inspection, EOMI Neck: supple, Trachea midline Respiratory/Chest: Normal breath sounds, CTA, No accessory muscle use Cardiovascular: S1, S2, No murmur Abdomen/GI:Soft, Non tender, Bowel sounds present Extremities/Musculoskeletal:normal inspection, no edema Neurologic/Psych:AAOX3, grossly no focal neurological deficits Skin: normal color, warm Results & Data Results & Data ([facility]) Vital Signs (Past 12 Hours) Vital Signs Temp Pulse Pulse Resp BP Pulse Ox 04/25/20 07:33 36.7 C 74 18 132/86 98 04/25/20 07:00 87 04/25/20 04:14 36.6 C 75 16 126/87 97 04/24/20 23:27 36.7 C 96 H 18 133/87 98 (1) Chest pain Chest pain type: unspecified Qualified Code(s): R07.9 - Chest pain, unspecified
--- NOTE | 2020-04-25 11:38 | Cardiology Progress Note ---
Date of Service April 25, 2020 Assessment & Plan (1) Chest pain: (2) Abnormal EKG: She is responding well to treatment for pericarditis and she should be discharged home with ibuprofen 600 mg every 8 hours for 1 month and colchicine 0.6 mg p.o. twice daily for 3 months. Would also recommend GI prophylaxis. Given the equivocal stress test I would also like to perform a coronary CTA will be ordered through my office as an outpatient. In anticipation of this she will be started on metoprolol 25 mg p.o. twice daily and this will likely be discontinued after the CTA is performed. Okay to discharge My office will arrange cardiac follow-up. Admission and Anticipated Discharge Date Admission Date: April 23, 2020 Subjective Patient seen and examined ambulating in the hallway, chart reviewed. States that chest discomfort has improved. Still some slight pressure but better than admission. Denies shortness of breath, palpitations, lightheadedness, dizziness or syncope. Telemetry reviewed: Normal sinus rhythm without arrhythmia. Review of Systems Review of Systems: All systems reviewed & are unremarkable except as noted in HPI & below Physical Exam Physical Exam: Physical Exam: General: Awake, alert and oriented x 3. No acute distress. HEENT: Normocephalic, atraumatic. Pupils equal, round and reactive to light and accommodation. Extraocular muscles are intact. Anicteric sclera. Moist mucous membranes. Neck: No JVD. No bruit. Cardiovascular: Regular. No S-4. Normal S-1 and S-2. No S-3. No murmurs, rubs or gallops. Pulmonary: Clear to auscultation bilaterally. No rales, rhonchi, or wheezing. Abdomen: Bowel sounds x 4, soft. No rebound, guarding or tenderness. No organomegaly. Extremities: No clubbing, cyanosis or edema. +2 pedal pulses bilaterally. Skin: Warm and dry. Results & Data ([facility]) Vital Signs (Past 12 Hours) Vital Signs Temp Pulse Pulse Resp BP Pulse Ox 04/25/20 11:22 36.8 C 86 18 120/83 96 04/25/20 07:33 36.7 C 74 18 132/86 98 04/25/20 07:00 87 04/25/20 04:14 36.6 C 75 16 126/87 97 (1) Chest pain Chest pain type: unspecified Qualified Code(s): R07.9 - Chest pain, unspecified
--- NOTE | 2020-04-25 12:02 | Discharge Summary ---
Date of Service April 25, 2020 Admission HPI Per Admitting Provider History obtained from patient and records. Medical history significant for 3 weeks ago patient noted intermittent left sided chest pressure symptoms with episodic palpitations possibly related to exercise and left arm motion. No cough, no S OB symptoms. Usual stress at work. Patient seen at the weekend clinic today. SBP 140s, pulse rate 120s. EKG at the office showed tachycardia with inverted T waves in the anterolateral leads. Patient sent to the ER for evaluation. Aspirin given at the ER. Chest pressure not relieved by nitroglycerin administration at the ER. Medical History as above Surgical History : Dental surgery Family History : Stroke Personal/Social history : Non-smoker, occasional EtOH intake, [employer] services [employer] Admission Exam Per Admitting Provider Physical Exam Physical Exam: GENERAL: Comfortable, anxious, no respiratory distress, occasionally hyperventilating SKIN: Normal color, warm HEENT: [place] palpebral conjunctivae, no ptosis, moist buccal mucosa NECK : Supple, no tenderness CHEST : CTA, no tenderness HEART : Tachycardic, no obvious murmurs ABDOMEN: Some distention, nontender EXTREMITIES : No LE swelling/tenderness, no other conspicuous deformities noted NEUROLOGIC : Coherent, no facial asymmetry, no other gross focality Principal Diagnosis Pericarditis Pericardial Effusion Equivocal stress test Discharge Data Allergies Allergy/AdvReac Type Severity Reaction Status Date / Time No Known Allergies Allergy Unverified 04/23/20 17:46 Consultations 04/23/20 19:31 ED Decision to Admit Stat 04/23/20 22:01 Consult Cardiology Routine Procedures Performed ECHO: Normal LV chamber size and function. EF 65 to 70%. No segmental left ventricular wall motion abnormalities. Normal diastolic function. No significant valvular pathology. Slight increase in pericardial fluid adjacent to the apical anterior lateral space. Increased brightness of the inferior aspect of the pericardium. Stress ECHO: Nonischemic exercise stress echocardiogram with normal wall motion on imaging. Abnormal EKG response to exercise with significant diffuse downsloping ST segment depressions. Equivocal study. No arrhythmias. Normal heart rate and blood pressure response to exercise. Chest CTA: 1. There is no evidence of pulmonary embolus in the main, lobar, or segmental pulmonary arteries. 2. The lungs are clear. Ordered Studies 04/23/20 18:01 CT angio chest PE protocol Stat Hospital Course (1) Chest pain: Chest Pain: R/O ACS DD: Pericarditis Abnormal EKG Negative Troponin CXR: Unremarkable -ECHO: Normal LV chamber size and function. EF 65 to 70%. No segmental left ventricular wall motion abnormalities. Normal diastolic function. No significant valvular pathology. Slight increase in pericardial fluid adjacent to the apical anterior lateral space. Increased brightness of the inferior aspect of the pericardium. - Stress ECHO: Nonischemic exercise stress echocardiogram with normal wall motion on imaging. Abnormal EKG response to exercise with significant diffuse downsloping ST segment depressions. Equivocal study. No arrhythmias. Normal heart rate and blood pressure response to exercise. -Lipid Panel: WNL -Appreciate Cardiology Input -Continue colchicine, ibuprofen -Monitor on Tele -Needs follow up with Cardiology upon discharge DVT Px: Lovenox SQ Code Status Full code Disposition Expect to discharge home when medically stable Total Time Total Time Spent Total Time Spent (In Minutes): 42 minutes Total Time Includes: Examination of the Patient, Discharge Planning, Medication Reconciliation, Communication With Other Providers and Other Discharge Plan Discharge Items Patient Disposition: Home - Self-Care Reason For Visit: CP Discharge Diagnosis: Pericarditis Pericardial Effusion Equivocal stress test Condition on Discharge: Good Activity: Per Instructions section Exercise/Sports: Wait until after follow-up appointment Non-emergency contact: Primary Care Provider and Management Architect Call non-emergency contact if: you have any medication questions, your symptoms worsen, your pain is not controlled, your pain is worsening, your pain is unusual for you, your pain is concerning for you and you have a fever Follow-up/Referrals: Vin Peterson DO [Physician] - 05/02/20 2:00 pm (Please follow up with Dr. Peterson on Saturday05/02/20 at 2:00 pm. Please arrive to the office at 1:45 pm for your appointment. If you are unable to keep this appointment, please call the office to reschedule at [phone].) Maureen Cummings DO [Primary Care Provider] - (Date & Time 04/29/2020 10:00 AM Provider Maureen Cummings DO Department [facility] ) Diet: Heart Healthy Ambulatory Orders: Basic Metabolic Panel (Routine) Timeframe: 1 Week Location: Determined by Patient Ordered By: Silverio Shafer Addtl Attending Provider Instructions: Follow-up with your primary care physician Dr. Cummings on 04/29/2020 10:00 AM as scheduled Follow-up with your power electronics engineer Dr. Peterson as advised Total duration of medications: Metoprolol, Ibuprofen and Colchicine to be determined by your Management Architect. Get blood test (Basic Metabolic panel) in 1 week and follow up with your physician. Get Coronary CTA as outpatient as recommended by your Management Architect Seek immediate medical attention if your symptoms reoccur or worsen Pending Studies at Discharge: No Stand-Alone Forms: My [facility] [employer], Work/School Release (Inpt), Smoking Cessation Medications and DC Order Prescriptions: New famotidine [Acid Medical Records Analyst (famotidine)] 10 mg Tablet 10 mg PO BID Qty: 60 RF: 0 ibuprofen 600 mg Tablet 600 mg PO Q8 30 Days Qty: 90 RF: 0 metoprolol tartrate 25 mg Tablet 25 mg PO BID Qty: 60 RF: 0 colchicine [Colcrys] 0.6 mg Tablet 0.6 mg PO BID Qty: 60 RF: 2 No Action No Known Home Medications RF: 0 Discharge Orders: Discharge Order (Routine); Ordered 04/25/20 Ordered By: Silverio Lira/Other Patient Handouts: Colchicine tablets or capsules, Metoprolol tablets Admission Data Admit Date/Time: 04/23/20 20:52 Attending Provider: Silverio Shafer Admit Provider: Jefferson Bruce Primary Care Provider: Maureen Cummings Other Providers: Jefferson Bruce ; Vin Peterson ; Hernandez Chaney ; Luis Miguel Moscoso ; Eladio Britton ; CandelariaAlfredo minor ; Justice Mkcenzie ; Lucia Segovia ; Radha Powers ; Curt Gonzales Other Interventions: Discharge Summary Assessment (RN) Last Done: 04/25/20 13:08
[2020-04-25] MEDS ORDERED: FAMOTIDINE 10 MG TABLET PO SCH (21:00)
--- NOTE | 2020-04-26 05:57 | Electrocardiogram Report ---
Test Reason : Blood Pressure : / mmHG Vent. Rate : 083 BPM Atrial Rate : 083 BPM P-R Int : 128 ms QRS Dur : 082 ms QT Int : 366 ms P-R-T Axes : 057 059 052 degrees QTc Int : 430 ms Normal sinus rhythm Normal ECG When compared with ECG of 24-APR-2020 07:28, No significant change was found Confirmed by Stiven Salmeron ([id number]) on 04/26/2020 5:56:52 AM Referred By: Maureen Cummings Confirmed By:Stiven Salmeron
== END 2020-04-25 13:40 | disposition home or self-care (01) ==
LOC: ED 16:48 → 2S 16:48